=== PATIENT | male | born 1965 | race African-American/Black ===

== ENCOUNTER 2025-09-27 14:02 | Emergency (ER) | payer OTHER, SELFPAY ==
[2025-09-27 14:08] VITALS: BP 155/97
[2025-09-27 14:54] LABS: ALT (SGPT) 16 U/L (0-50); AST (SGOT) 21 U/L (17-59); Albumin 4.2 g/dl (3.5-5.0); Alkaline Phosphatase 114 U/L (38-126); Blood Urea Nitrogen 9 mg/dl (9-20); Calcium 9.1 mg/dl (8.4-10.2); Carbon Dioxide 28 mmol/L (22-30); Chloride 105 mmol/L (98-107); Glucose 80 mg/dl (70-99); Hematocrit 40.2 % (39.0-52.0); Hemoglobin 13.8 g/dL (13.0-18.0); Mean Corp Hgb Conc. 34.3 g/dL (33.0-37.0); Mean Corpuscular Volume 83.2 fL (80.0-94.0); Nucleated Red Blood Cells % 0 % (-); Platelet Count 246 10^3/uL (130-400); Potassium 4.1 mmol/L (3.5-5.1); Red Cell Dist. Width 14.3 % (11.5-14.5); Sodium 139 mmol/L (135-145); Total Protein 8.6 g/dl (6.3-8.2); eGFR > 60.00
--- NOTE | 2025-09-27 15:30 | ED.GENMED ---
History of Present Illness
General
Chief Complaint: Swelling
Time Seen by Provider: 09/27/25 15:22
History of Present Illness
History of Present Illness:
60-year-old male with no past medical history presents to the Emergency Department for evaluation of progressive worsening redness and swelling of the right ankle and lower leg for the past 4 days. Denies any trauma. Able to ambulate with
discomfort. No fever, chills, sweats, or distal paresthesias. No nausea or vomiting
Review of Systems
Review of Systems
Allergies reviewed?: Yes
All Other Systems: ROS reviewed and negative except as documented in HPI and ROS
Phy Exam
Physical Exam
Physical Exam:
GEN: Well appearing, NAD, WDWN
HEENT: Oral mucosa moist, no scleral icterus
Cardiac: Regular rate
Lung: No respiratory distress, no tachypnea
MSK: Diffuse soft tissue swelling of the right foot, ankle, and lower leg with exquisite tenderness to palpation. Strong right DP pulse. No calf edema, no open wounds
Skin: Good color, no pallor or jaundice, no rashes
Neuro: AO x3, moves all extremities freely
Psych: Calm, cooperative
Scores
Heart Failure Risk
Heart Failure Risk Score: Not Applicable
Course
Orders/Labs/Results
Orders:
Orders
09/27/25 14:23
C-Reactive Protein Urgent
Comment: ADD ON
Complete Blood Count/With Diff Urgent
Comprehensive Metabolic Panel Urgent
Erythrocyte Sed Rate Urgent
Comment: ADD ON
Lactic Acid Urgent
Blood Culture Urgent
MC Source: Blood/Venous
Specimen Description:
09/27/25 15:29
US Periph Venous LOWER Ext RT Urgent
Comment:
Reason For Exam: RLE edema
09/27/25 15:30
Add On- LAB Urgent
Tests Added?: ESR, CRP
09/27/25 15:33
Ketorolac [Toradol] 30 mg IM NOW STA
09/27/25 17:56
Cephalexin Monohydrate [Keflex] 500 mg PO NOW STA
Abnormal Lab Results
09/27/25
14:23
MPV 11.4 H fL
(7.4-10.4)
Absolute Neuts (auto) 7.5 H 10^3/uL
(1.4-6.5)
ESR 44 H mm/hour
(0-20)
C-Reactive Protein 37.80 H mg/L
(0.0-10.00)
Total Protein 8.6 H g/dl
(6.3-8.2)
09/27/25 14:23
09/27/25 14:23
Vital Signs
Initial and Last Documented VS:
Initial Vital Signs
Temp Pulse Resp BP Pulse Ox
97.5 F 91 18 155/97 97
09/27/25 14:08 09/27/25 14:08 09/27/25 14:08 09/27/25 14:08 09/27/25 14:08
Last Documented Vital Signs
Temp Pulse Resp BP Pulse Ox
97.5 F 78 18 158/92 99
09/27/25 14:08 09/27/25 18:42 09/27/25 18:42 09/27/25 18:42 09/27/25 18:42
MDM/Problems Addressed
MDM/Problems Addressed:
Mild elevation of inflammatory markers likely in the setting of acute infection. Ultrasound shows no evidence for DVT. The associated adenopathy supports infectious etiology. A limited bedside ultrasound performed by myself shows no joint
effusion rather exclusively soft tissue swelling thus we will treat with oral antibiotics for cellulitis, ED return parameters discussed. Doubt intra-articular pathology such as gout or septic arthritis
*Pulse Oximetry
SaO2: 97
Oxygen Mode of Delivery: Room air
Patient hypoxic: no
*Critical Care Note
Total Time (30-74mins, 75-104mins- exclusive of procedures): Not Applicable
ED Attending Note
-
Portions of this chart may have been created with voice recognition software.� Occasional wrong word or��sound alike� substitutions may have occurred due to the inherent limitations of voice recognition software.
Discharge Plan
Departure
Patient Disposition: Home (Routine Discharge)
Date of Disposition: 09/27/25
Time of Disposition: 17:56
Patient with high blood pressure during this ER visit?: No
Discharge Problem:
Cellulitis of leg, right
Instructions: Cellulitis (skin infection) in adults - ED (DC)
Prescriptions:
New
cephalexin 500 mg capsule
500 mg PO QID 7 Days Qty: 28 0RF
Referrals:
Bowen Calderón DO [Family Provider, Family Practice]
Activity Restrictions/Additional Instructions:
Elevate and ice
Return if worsening after 48-72 hours
Interventions
Interventions:
*Risk Screen - Suicide (C-SSRS) Last Done: 09/27/25 14:12
*Nursing Disposition Last Done: 09/27/25 18:43
ED- Cardiac Assessment Last Done: 09/27/25 15:32
ED- Pulmonary Assessment Last Done: 09/27/25 15:32
ED-Skin Assessment Last Done: 09/27/25 15:32
Discharge Date and Time
Discharge Date/Time: 09/27/25 18:44
Print Language: ITALIAN
[2025-09-27] MEDS: TORADOL 30 MG IM (15:36)
[2025-09-27 17:10] LABS: C-Reactive Protein 37.80 mg/L (0.0-10.00)
[2025-09-27] MEDS: KEFLEX 500 MG PO (18:06)
[2025-09-27 18:42] VITALS: BP 158/92
== END 2025-09-27 18:44 | disposition home or self-care (01) ==
LOC: EMR 14:02
PROVIDERS: Student in an Organized Health Care Education/Training Program; EMERGENCY PHYSICIAN Emergency Medicine; FAMILY PHYSICIAN Family Medicine
DX: L03.115 Cellulitis of right lower limb (principal)
CPT/HCPCS: 96372; 99284; 80053; 83605; 85025; 85652; 86140; 87040; 93971